=== PATIENT | female | born 1990 | race Hispanic/Latino ===

== ENCOUNTER 2020-02-23 13:16 | Emergency (ER) | payer SELFPAY ==
--- NOTE | 2020-02-23 13:52 | RAD ---
EXAM: 3 views of the right ankle HISTORY: Ankle pain COMPARISON: None FINDINGS: 3 views of the right ankle shows a spiral fracture of the distal fibula and a fracture of t he medial malleolus. There is malalignment of the ankle mortise. Moderate diffuse soft tissue swelling is seen. IMPRESSION: Bimalleolar fracture
[2020-02-23] MEDS ORDERED: Morphine 10 MG/ML VIAL ONE (15:54)
[2020-02-23] MEDS ORDERED: Ondansetron PF 4 MG/2 ML Vial ONE (15:54)
[2020-02-23] MEDS ORDERED: Morphine 4 MG/ML VIAL ONE (15:58)
[2020-02-23] MEDS ORDERED: Ondansetron ODT 4 MG TAB ONE (16:02)
== END 2020-02-23 17:05 | disposition home or self-care (01) ==
LOC: ERS 13:16
DX: S82.841A Displaced bimalleolar fracture of right lower leg, initial encounter for closed fracture (principal); F41.9 Anxiety disorder, unspecified; F32.9 Major depressive disorder, single episode, unspecified; Z87.891 Personal history of nicotine dependence; W10.9XXA Fall (on) (from) unspecified stairs and steps, initial encounter; Y92.039 Unspecified place in apartment as the place of occurrence of the external cause
CPT/HCPCS: 27810; 96372; J2270; J2405; Q0162

== ENCOUNTER 2020-03-01 09:33 | Outpatient (CLI) | payer OTHER ==
[2020-03-02 13:28] LABS: SARS-CoV-2 MS2 Positive; SARS-CoV-2 N Gene Positive; SARS-CoV-2 S Gene Positive; SARS-CoV-2 by NAA DETECTED (NotDetected); SARS-CoV-2 orf1ab Positive
== END 2020-03-01 09:34 | disposition home or self-care (01) ==
LOC: LABBT 09:33
PROVIDERS: ATTEND Orthopaedic Surgery
DX: U07.1 COVID-19 (principal); Z01.812 Encounter for preprocedural laboratory examination; S82.841A Displaced bimalleolar fracture of right lower leg, initial encounter for closed fracture
CPT/HCPCS: 87635; U0003

== ENCOUNTER 2020-05-17 07:07 | Inpatient (IN) | payer OTHER ==
[2020-05-17] MEDS ORDERED: Morphine 4 MG/ML VIAL ONE (07:30)
[2020-05-17] MEDS ORDERED: Vancomycin 1 GM/200 ML BAG ONE (07:31)
[2020-05-17] MEDS ORDERED: Acetaminophen 500 MG TAB ONE (07:31)
[2020-05-17] MEDS ORDERED: Piperacillin/Tazobactam 4.5 GM VIAL ONE (07:31)
[2020-05-17] MEDS ORDERED: Ondansetron PF 4 MG/2 ML Vial ONE (07:31)
[2020-05-17 07:44] LABS: Hemoglobin 15.7 g/dL (12.0-16.0); Mean Corpuscular HGB CONC 33.6 g/dL (32.0-36.0); Mean Corpuscular Volume 92.3 fL (78.0-98.0); Mean Platelet Volume 9.4 fL (7.4-10.4); Platelet Count 188 thou/uL (130-400); RBC Distribution Width 11.1 % (11.5-14.5); Red Blood Cell (RBC) Count 5.07 mill/uL (4.20-5.40)
--- NOTE | 2020-05-17 07:49 | RAD ---
Exam:Right ankle 3 view HISTORY: Nausea. Vomiting. Drainage from wound. COMPARISON: 03/04/2020 FINDINGS: Redemonstration of internal fixation hardware. There appears be incompletely healed distal fibula fracture. There is soft tissue swelling. There appears to be a bandage overlying the lateral soft tissues. No evidence of subcutaneous emphysema. There does appear to be mild bone demineralizati on. IMPRESSION: No radiographic evidence of osteomyelitis. No evidence of perihardware lucency. Incomplet mike healed distal fibular fracture is noted.
[2020-05-17 07:55] LABS: BHCG - Serum Negative (NEGATIVE); Pregs Control Background? CLEAR/WHITE (CLR/WHITE); Pregs Control Bar Appear? YES (CONTROL BAR)
[2020-05-17 08:03] LABS: Band 17 % (5-11); Lymphocytes 3 % (21-51); MDiff Complete? YES; Monocytes 4 % (0-10); Neutrophil 75 % (42-75); Platelet Morphology Comment Appears Adequate; RBC Morphology Normal; Reactive Lymphocytes 1 % (0-10)
[2020-05-17 08:10] LABS: ALT (SGPT) 26 U/L (8-55); AST (SGOT) 18 U/L (5-34); Alkaline Phosphatase 77 U/L (40-110); Anion Gap 14 mmol/L (10-20); BUN (Urea Nitrogen) 12 mg/dL (7.0-18.7); Bilirubin, Total 0.9 mg/dL (0.2-1.2); Calc. Creatinine Clearance 0 mL/min (70-130); Carbon Dioxide 23 mmol/L (22-29); Chloride 100 mmol/L (98-107); Estimated GFR-MDRD 72; Globulin 3.6 g/dL (2.4-3.5); Glucose 151 mg/dL (70-105); Potassium 3.9 mmol/L (3.5-5.1); Protein, Total 7.6 g/dL (6.0-8.3); Sodium 133 mmol/L (136-145)
--- NOTE | 2020-05-17 10:20 | PDOC.HHP ---
Hospitalist HPI - History of Present Illness R ankle pain and redness History of Present Illness: 30 year old female pt presented to ER with a complaint of R ankle pain and redness that began this morning. Pt underwent a R ankle ORIF in 03/04/20, performed by Dr. Smith, after falling down stairs and suffering a R bimalleolar fracture. Pt reports that the recovery from surgery was going well and she was able to place pressure on R foot to walk with crutches. She does note intermittent opening of wounds around the surgical sites, with some dark drainage. Pt was using soap and water to clean the wounds, and replacing the bandages. This morning, she states that she felt feverish, dizzy, redness that extends from R ankle to her knee, 1 episode of vomiting, and ankle pain. She states that the pain is worsened by movement and that she can no longer place pressure to walk. Denies recent trauma. She did not take any medications today and she has finished her prescription of Tylenol 3 and Tramadol that was given after her surgery. She also reports mild headache that is worsened by light. She denies chest pain, abdominal pain, SOB, nausea, dysuria, blood in stool or urine. Hospitalist ROS - Review of Systems All other systems reviewed; all pertinent +/- noted in HPI/Subj Hospitalist History - Past Medical History Source: patient Psych: reports: Anxiety, Depression - Past Surgical History Past Surgical History: reports: , Tubal Ligation, Tonsillectomy, Other (Adenoidectomy) - Family History Family History: reports: cardiac disorder, diabetes mellitus - Social History Smoking Status: Former smoker Alcohol: reports: None Drugs: reports: none Living Situation: With Family - Exam General Appearance: awake alert (in mild distress. Obese patient) Eye: PERRL ENT: normocephalic atraumatic Neck: supple, symmetric, no JVD Heart: RRR, no murmur, no gallops Respiratory: CTAB, no wheezes, no rales, no ronchi Gastrointestinal: soft, non-tender, non-distended, normal bowel sounds, no guarding, no rigidity Extremities: 1+ LE edema (R ankle. R ankle shows redness that extends from ankle to back of knee, feels warm to touch. Compared to L side, R calf seems more swollen.There is a 1cm open wound on lateral R ankle.) Neurological: cranial nerve grossly intact, normal sensation to touch, no weakness Musculoskeletal: normal tone, normal strength Musculoskeletal - other findings: Normal ROM of R ankle Psychiatric: normal affect, A&O x 3 Hospitalist Results - Labs Result Diagrams: 05/17/20 07:24 05/17/20 07:24 Lab results: WBC 16.0 thou/uL (4.8-10.8) H 05/17/20 07:24 Hgb 15.7 g/dL (12.0-16.0) 05/17/20 07:24 Hct 46.8 % (36.0-47.0) 05/17/20 07:24 MCV 92.3 fL (78.0-98.0) 05/17/20 07:24 Plt Count 188 thou/uL (130-400) 05/17/20 07:24 Band Neuts % (Manual) 17 % (5-11) H 05/17/20 07:24 Sodium 133 mmol/L (136-145) L 05/17/20 07:24 Potassium 3.9 mmol/L (3.5-5.1) 05/17/20 07:24 Chloride 100 mmol/L (98-107) 05/17/20 07:24 Carbon Dioxide 23 mmol/L (22-29) 05/17/20 07:24 BUN 12 mg/dL (7.0-18.7) 05/17/20 07:24 Creatinine 0.91 mg/dL (0.6-1.1) 05/17/20 07:24 Glucose 151 mg/dL (70-105) H 05/17/20 07:24 Lactic Acid 3.0 mmol/L (0.5-2.2) H 05/17/20 07:24 Calcium 9.0 mg/dL (7.8-10.44) 05/17/20 07:24 Total Bilirubin 0.9 mg/dL (0.2-1.2) 05/17/20 07:24 AST 18 U/L (5-34) 05/17/20 07:24 ALT 26 U/L (8-55) 05/17/20 07:24 Alkaline Phosphatase 77 U/L (40-110) 05/17/20 07:24 Serum Total Protein 7.6 g/dL (6.0-8.3) 05/17/20 07:24 Albumin 4.0 g/dL (3.5-5.0) 05/17/20 07:24 Hospitalist H&P A/P - Problem (1) Sepsis Code(s): A41.9 - SEPSIS, UNSPECIFIED ORGANISM Status: Acute (2) Cellulitis of right ankle Code(s): L03.115 - CELLULITIS OF RIGHT LOWER LIMB Status: Acute - Plan Plan: -Rule out DVT using vascular US -Continue Zosyn -Perform a wound culture and modify to appropriate antibiotic therapy -Manage pain control using Tylenol
[2020-05-17 10:43] LABS: Lactic Acid 1.9 mmol/L (0.5-2.2)
--- NOTE | 2020-05-17 11:01 | ULT ---
EXAM: Right lower extremity venous ultrasound HISTORY: Right lower extremity pain and redness COMPARISON: None TECHNIQUE: Multiplanar grayscale and color Doppler images were obtained in a right lower extremity ve nous ultrasound. Spectral analysis of the Doppler waveforms were performed. FINDINGS: The common femoral vein, profunda femoral vein, superficial femoral vein, and popliteal vei n are normal in appearance without visible thrombus. These vessels demonstrate normal compression, flow, and augmentation. The posterior tibial vein and greater saphenous vein are patent without evidence of thrombus. IMPRESSION: No evidence of DVT.
[2020-05-17] MEDS ORDERED: Acetaminophen 325 MG TAB PO PRN (11:51)
[2020-05-17] MEDS ORDERED: Ondansetron ODT 4 MG TAB PO PRN (11:51)
[2020-05-17] MEDS ORDERED: Calcium Carbonate 500 MG ChewTAB PO PRN (11:51)
[2020-05-17] MEDS ORDERED: Meropenem 1 GM in Sodium Chloride 0.9% 100 ML IVPB SCH (12:00)
[2020-05-17] MEDS ORDERED: Vancomycin 1 GM in Premix Bag 1 BAG IVPB SCH (12:00)
[2020-05-17] MEDS ORDERED: diphenhydrAMINE 25 MG CAP PO PRN (13:08)
[2020-05-17] MEDS: Sodium Chloride 0.9% 1,000 ML IV SCH (13:16)
[2020-05-17] MEDS: MEROPENEM 1 GM/50 ML 1 GM in Premix Bag 1 BAG IVPB SCH ×2 (15:53→23:00)
[2020-05-17 16:36] VITALS: BMI 59.2
--- NOTE | 2020-05-17 16:54 | CON ---
DATE OF CONSULTATION: REQUESTING PHYSICIAN: Dr. Kunal Woodward. CONSULTING PHYSICIAN: Dr. Kevin Fischer. REASON FOR CONSULTATION: Acute swelling and erythema of the right ankle. BRIEF CLINICAL HISTORY: Carmen is a 30-year-old female, who presented to the emergency room this morning for evaluation of right ankle pain and swelling that began abruptly this morning. Our service has been consulted because she has had an open reduction and internal fixation of the right ankle on March 04, 2020. Surgery and her postoperative recovery had been reported as being unremarkable, and she was doing very well with her recovery. She has been complaining of acute onset discomfort and she also admits to little bit of intermittent drainage at the operative site. She has had one episode of vomiting, constitutional symptoms, malaise, and she states that she can no longer put pressure on the ankle anymore. PAST MEDICAL HISTORY: Significant for depression. PAST SURGICAL HISTORY: , tubal ligation, tonsillectomy, left ankle ORIF in February of this year. PHYSICAL EXAMINATION: Visual inspection of the right ankle demonstrates her to have significant erythema circumferentially both on the medial and lateral aspect of the ankle, extending down to the dorsum of the foot and both retromalleolar regions. The erythema extends approximately half to [address] her leg, especially posteriorly, it blanches with pressure. She has a little bit of bimalleolar tenderness to palpation, but I am not able to express anything out of her incision on either side. There is no purulence expressed, no active draining, but she does have a macerated area at the superior aspect of her lateral incision, and again, I cannot express anything out of this with deep direct pressure, which is a little uncomfortable for the patient. She had good digital excursion. She has adequate range of motion with plantar flexion, dorsiflexion, inversion, eversion. Range of motion is full and non-provocative. IMAGING STUDIES: Two views of right ankle demonstrate a standard bimalleolar ORIF with 1/3 tubular plate fibula and 2 medial malleolar screws. LABORATORY DATA: White blood cell count 16, hemoglobin 15.7, hematocrit 46.8. IMPRESSION: Right ankle cellulitis. At this point, I am not sure whether or not this is a septic joint or infected hardware, but I do agree with admission and IV antibiotics. Tentatively, I will make the patient n.p.o. after midnight, so we can re-examine in the morning. Job ID: [id number]
[2020-05-17 17:30] LABS: SARS-CoV-2 MS2 Positive; SARS-CoV-2 N Gene Negative; SARS-CoV-2 S Gene Negative; SARS-CoV-2 by NAA Not Detected (NotDetected); SARS-CoV-2 orf1ab Negative
[2020-05-17] MEDS: HYDROcodone/Acetaminophen 5/325 mg Tablet PO PRN (18:39)
[2020-05-17] MEDS ORDERED: Vancomycin 1.5 GRAM/300 ML BAG 1.5 GM in Premix Bag 1 BAG IVPB SCH (20:00)
[2020-05-17] MEDS: Enoxaparin Sodium 40 MG/0.4 ML SYRINGE SC SCH (20:47)
[2020-05-17] MEDS: Senokot S 8.6-50 MG TAB PO SCH (20:48)
[2020-05-17] MEDS: Saccharomyces boulardii 250 MG CAP PO SCH (20:48)
[2020-05-17] MEDS: Famotidine 20 MG TAB PO SCH (20:48)
[2020-05-18] MEDS: HYDROcodone/Acetaminophen 5/325 mg Tablet PO PRN ×2 (00:15→08:46)
[2020-05-18] MEDS: Sodium Chloride 0.9% 1,000 ML IV SCH ×3 (01:30→15:07)
[2020-05-18 05:48] LABS: #Eosinphils 0.1 thou/uL (0.0-0.7); #Lymphocytes 1.4 thou/uL (1.20-3.40); #Neutrophils 12.7 thou/uL (1.40-6.50); %Basophils 0.2 % (0.0-1.0); %Eosinophils 0.5 % (0.0-10.0); %Monocytes 6.6 % (0.0-10.0); %Neutrophils 83.8 % (42.0-75.0); Hemoglobin 13.2 g/dL (12.0-16.0); Mean Corpuscular HGB CONC 33.9 g/dL (32.0-36.0); Mean Corpuscular Hemoglobin 31.3 pg (27.0-31.0); Mean Corpuscular Volume 92.1 fL (78.0-98.0); Mean Platelet Volume 9.2 fL (7.4-10.4); Platelet Count 154 thou/uL (130-400); RBC Distribution Width 11.4 % (11.5-14.5); Red Blood Cell (RBC) Count 4.21 mill/uL (4.20-5.40); White Blood Cell (WBC) Count 15.2 thou/uL (4.8-10.8)
[2020-05-18] MEDS: MEROPENEM 1 GM/50 ML 1 GM in Premix Bag 1 BAG IVPB SCH (05:48)
[2020-05-18 06:05] LABS: ALT (SGPT) 16 U/L (8-55); AST (SGOT) 17 U/L (5-34); Alkaline Phosphatase 65 U/L (40-110); Anion Gap 10 mmol/L (10-20); BUN (Urea Nitrogen) 10 mg/dL (7.0-18.7); Bilirubin, Total 0.8 mg/dL (0.2-1.2); Calc. Creatinine Clearance 217 mL/min (70-130); Calcium 7.9 mg/dL (7.8-10.44); Carbon Dioxide 20 mmol/L (22-29); Chloride 105 mmol/L (98-107); Estimated GFR-MDRD 85; Glucose 102 mg/dL (70-105); Potassium 3.8 mmol/L (3.5-5.1); Sodium 131 mmol/L (136-145)
--- NOTE | 2020-05-18 08:05 | PRG ---
DATE OF SERVICE: 05/18/2020 SUBJECTIVE: Carmen is a 30-year-old female admitted yesterday for cellulitis of the right lower extremity. She was started on vancomycin and meropenem by the Medicine Team. Our service was consulted for evaluation of the orthopedic hardware as a possible source. She certainly has some compromised skin, but there has been no purulence expressed from the wound and she can actively move the ankle, although ambulation is uncomfortable for her. Radiographs failed to demonstrate any gas or fluid levels in and around or changes consistent with osteomyelitis. She does have a white blood cell count which is elevated and remained constant at about 15.2. Her sedimentation rate was 29 and C-reactive protein at 18.2. Cellulitis is continuing to increase and move proximally. It has moved past the demarcation, which I personally made yesterday and is tender but does stephanie. Incisions appear without gross purulence, but this has more of a clinical appearance of a streptococcal infection rather than staphylococcus. IMPRESSION: Strongly suspect strep cellulitis due to failure to respond adequately to vancomycin and meropenem. PLAN: I will go ahead and discontinue the vancomycin, meropenem, and initiate IV clindamycin 900 q.8 for more directed streptococcal treatment plan. We will be happy to discuss with the Medicine team. We will follow clinically as well. At this point, we will place her on an 1800 kilocalorie diet and allow her to eat. No surgical plans at this point. Job ID: [id number]
[2020-05-18] MEDS ORDERED: Zolpidem Tartrate 5 MG TAB PO PRN (08:34)
[2020-05-18] MEDS ORDERED: Diabetic Tussin 200 MG/10 ML UDCUP PO PRN (08:34)
[2020-05-18] MEDS ORDERED: Sodium Chloride 0.65% Nasal 44 ML BOT EA NARE PRN (08:34)
[2020-05-18] MEDS ORDERED: Cepastat Lozenges 1 LOZ PO PRN (08:34)
[2020-05-18] MEDS ORDERED: Loperamide HCl 2 MG CAP PO PRN (08:34)
[2020-05-18] MEDS ORDERED: Loratadine 10 MG TAB PO PRN (08:34)
[2020-05-18] MEDS ORDERED: hydrALAZINE 20 MG/ML VIAL SLOW IVP PRN (08:34)
[2020-05-18] MEDS: Famotidine 20 MG TAB PO SCH ×2 (08:44→21:14)
[2020-05-18] MEDS: Clindamycin/D5W 900 MG in Premix Bag 1 BAG IVPB SCH ×3 (08:45→22:43)
[2020-05-18] MEDS: Senokot S 8.6-50 MG TAB PO SCH ×3 (08:59→21:18)
[2020-05-18] MEDS ORDERED: Morphine 2 MG/ML VIAL SLOW IVP SCH (09:00)
[2020-05-18] MEDS ORDERED: FLU VACC QS2020-21(6MOS UP)/PF 60 MCG/0.5 ML SYRINGE IM ONE (09:00)
[2020-05-18] MEDS ORDERED: Morphine 2 MG/ML VIAL SLOW IVP PRN (09:15)
--- NOTE | 2020-05-18 09:38 | PDOC.HOSPP ---
- Subjective Encounter Date: 05/18/20 Encounter Time: 08:30 Subjective: Patient is complaining of pain in her right ankle, per patient she is not diabetic, her erythema has been increased - Objective Vital Signs & Weight: Vital Signs (12 hours) Temp Pulse Resp BP Pulse Ox 05/18/20 08:01 98.5 F 05/18/20 08:00 98 05/18/20 07:26 99.5 F 95 16 123/86 98 05/18/20 04:47 98.2 F 92 18 127/79 97 05/18/20 00:35 100.4 F H 110 H 20 115/73 99 Weight Weight 293 lb 3.789 oz Result Diagrams: 05/18/20 05:12 05/18/20 05:12 Radiology Reviewed by me: Yes Hospitalist ROS - Review of Systems Constitutional: denies: fever, chills, sweats, weakness, malaise, other ENT: denies: ear pain, ear discharge, nose pain, nose discharge, nose congestion, mouth pain, mouth swelling, throat pain, throat swelling, other Respiratory: denies: cough, dry, shortness of breath, hemoptysis, SOB with excer tion, pleuritic pain, sputum, wheezing, other Cardiovascular: denies: chest pain, palpitations, orthopnea, paroxysmal noc. dyspnea, edema, light headedness, other Gastrointestinal: denies: nausea, vomiting, abdominal pain, diarrhea, constipation, melena, hematochezia, other Genitourinary: denies: dysuria, frequency, incontinence, hematuria, retention, other Musculoskeletal: reports: leg pain. denies: neck pain, shoulder pain, arm pain, back pain, hand pain, foot pain, other - Medication Medications: Active Medications Generic Name Dose Route Start Last Admin Trade Name Freq PRN Reason Stop Dose Admin Acetaminophen 650 mg 05/17/20 11:51 05/17/20 13:16 Acetaminophen 325 Mg Tab PO 650 mg Q4H PRN Administration Headache/Fever/Mild Pain (1-3) Hydrocodone Bitart/Acetaminophen 1 tab 05/17/20 11:51 05/18/20 08:46 Hydrocodone/Acetaminophen 5/325 Mg Tablet PO 05/18/20 11:52 1 tab Q4H PRN Administration Moderate Pain (4-6) Diphenhydramine HCl 25 mg 05/17/20 13:08 05/17/20 13:16 Diphenhydramine 25 Mg Cap PO 25 mg Q6H PRN Administration Itching & Insomnia Enoxaparin Sodium 40 mg 05/17/20 21:00 05/17/20 20:47 Enoxaparin Sodium 40 Mg/0.4 Ml Syringe SC 40 mg 2100 KIM Administration Famotidine 20 mg 05/17/20 21:00 05/18/20 08:44 Famotidine 20 Mg Tab PO 20 mg BID KIM Administration Sodium Chloride 1,000 mls @ 75 mls/hr 05/17/20 12:00 05/18/20 04:31 Normal Saline 0.9% IV 1,000 mls .[id number] KIM Administration Clindamycin Phosphate/Dextrose 50 mls @ 100 mls/hr 05/18/20 08:00 05/18/20 08:45 900 mg/ Device IVPB 50 mls 0800,1600,2359 KIM Administration Saccharomyces Boulardii 250 mg 05/17/20 21:00 05/17/20 20:48 Saccharomyces Boulardii 250 Mg Cap PO 250 mg HS KIM Administration Senna/Docusate Sodium 2 tab 05/17/20 21:00 05/18/20 08:59 Senokot S 8.6-50 Mg Tab PO 2 tab BID KIM Administration - Exam General Appearance: NAD, awake alert Eye: PERRL, anicteric sclera ENT: normocephalic atraumatic, no oropharyngeal lesions Neck: supple, symmetric, no JVD, no thyromegaly Heart: RRR, no murmur, no gallops, no rubs Respiratory: CTAB, no wheezes, no rales, no ronchi Gastrointestinal: soft, non-tender, non-distended, normal bowel sounds Gastrointestinal - other findings: Morbid obesity Extremities - other findings: Right lower extremity erythema with wound noted Skin: normal turgor, no lesions Neurological: no focal deficits Musculoskeletal: normal tone, normal strength Psychiatric: normal affect, normal behavior, A&O x 3 Hosp A/P (1) Sepsis Code(s): A41.9 - SEPSIS, UNSPECIFIED ORGANISM Status: Acute Qualifiers: Sepsis acute organ dysfunction status: without acute organ dysfunction (2) Cellulitis of right ankle Code(s): L03.115 - CELLULITIS OF RIGHT LOWER LIMB Status: Acute (3) Lactic acidosis Code(s): E87.2 - ACIDOSIS Status: Acute Plan: Due to sepsis, resolved (4) Hyponatremia Code(s): E87.1 - HYPO-OSMOLALITY AND HYPONATREMIA Status: Acute (5) Morbid obesity with BMI of 50.0-59.9, adult Code(s): E66.01 - MORBID (SEVERE) OBESITY DUE TO EXCESS CALORIES; Z68.43 - BODY MASS INDEX [BMI] 50.0-59.9, ADULT Status: Chronic - Plan old records reviewed/req, continue antibiotics Plan Orthopedic recommendation appreciated, no plan for surgical intervention, Continue clindamycin Continue Florastor as a probiotic We will add morphine for pain control Continue IV fluid We will repeat labs tomorrow Ambulate as tolerated Follow-up on culture result
[2020-05-18] MEDS: Ondansetron PF 4 MG/2 ML Vial IVP PRN ×2 (11:07→18:07)
[2020-05-18] MEDS: Enoxaparin Sodium 40 MG/0.4 ML SYRINGE SC SCH (21:13)
[2020-05-18] MEDS: Saccharomyces boulardii 250 MG CAP PO SCH (21:13)
[2020-05-18] MEDS: traMADol HCl 50 MG TAB PO PRN (22:39)
[2020-05-19 06:15] LABS: #Eosinphils 0.1 thou/uL (0.0-0.7); #Lymphocytes 1.6 thou/uL (1.20-3.40); #Monocytes 0.8 thou/uL (0.11-0.59); #Neutrophils 5.7 thou/uL (1.40-6.50); %Basophils 0.3 % (0.0-1.0); %Eosinophils 1.2 % (0.0-10.0); %Lymphocytes 19.6 % (21.0-51.0); %Monocytes 10.1 % (0.0-10.0); %Neutrophils 68.8 % (42.0-75.0); Hemoglobin 11.9 g/dL (12.0-16.0); Mean Corpuscular HGB CONC 32.9 g/dL (32.0-36.0); Mean Corpuscular Hemoglobin 30.5 pg (27.0-31.0); Mean Corpuscular Volume 92.6 fL (78.0-98.0); Mean Platelet Volume 9.5 fL (7.4-10.4); Platelet Count 164 thou/uL (130-400); RBC Distribution Width 11.1 % (11.5-14.5); White Blood Cell (WBC) Count 8.2 thou/uL (4.8-10.8)
[2020-05-19 06:33] LABS: Anion Gap 13 mmol/L (10-20); BUN (Urea Nitrogen) 9 mg/dL (7.0-18.7); Calc. Creatinine Clearance 245 mL/min (70-130); Calcium 8.1 mg/dL (7.8-10.44); Carbon Dioxide 22 mmol/L (22-29); Chloride 105 mmol/L (98-107); Estimated GFR-MDRD Greater than 90; Glucose 104 mg/dL (70-105); Potassium 3.7 mmol/L (3.5-5.1); Sodium 136 mmol/L (136-145)
[2020-05-19 06:36] LABS: Hemoglobin A1c 5.5 % (4.0-6.0)
[2020-05-19] MEDS: Sodium Chloride 0.9% 1,000 ML IV SCH (06:36)
[2020-05-19] MEDS: Senokot S 8.6-50 MG TAB PO SCH ×2 (08:32→21:49)
[2020-05-19] MEDS: Clindamycin/D5W 900 MG in Premix Bag 1 BAG IVPB SCH ×2 (08:32→16:19)
[2020-05-19] MEDS: Famotidine 20 MG TAB PO SCH ×2 (08:33→21:48)
--- NOTE | 2020-05-19 09:32 | PDOC.HOSPP ---
- Subjective Encounter Date: 05/19/20 Encounter Time: 08:30 Subjective: Patient seen and examined. No new complaints. No overnight events, patient is overall feeling better - Objective Vital Signs & Weight: Vital Signs (12 hours) Temp Pulse Resp BP Pulse Ox 05/19/20 07:06 98.3 F 80 15 120/87 98 05/19/20 00:00 98.9 F 96 18 93/57 L 95 Weight Admit Weight 293 lb 3.792 oz Weight 293 lb 3.789 oz I&O: 05/18/20 05/19/20 05/20/20 06:59 06:59 06:59 Intake Total 1720 Balance 1720 Result Diagrams: 05/19/20 05:44 05/19/20 05:44 Hospitalist ROS - Review of Systems ENT: denies: ear pain, ear discharge, nose pain, nose discharge, nose congestion, mouth pain, mouth swelling, throat pain, throat swelling, other Respiratory: denies: cough, dry, shortness of breath, hemoptysis, SOB with excertion, pleuritic pain, sputum, wheezing, other Cardiovascular: denies: chest pain, palpitations, orthopnea, paroxysmal noc. dyspnea, edema, light headedness, other Gastrointestinal: denies: nausea, vomiting, abdominal pain, diarrhea, constipation, melena, hematochezia, other Genitourinary: denies: dysuria, frequency, incontinence, hematuria, retention, other Musculoskeletal: denies: neck pain, shoulder pain, arm pain, back pain, hand pain, leg pain, foot pain, other - Medication Medications: Active Medications Generic Name Dose Route Start Last Admin Trade Name Freq PRN Reason Stop Dose Admin Acetaminophen 650 mg 05/17/20 11:51 05/17/20 13:16 Acetaminophen 325 Mg Tab PO 650 mg Q4H PRN Administration Headache/Fever/Mild Pain (1-3) Diphenhydramine HCl 25 mg 05/17/20 13:08 05/17/20 13:16 Diphenhydramine 25 Mg Cap PO 25 mg Q6H PRN Administration Itching & Insomnia Enoxaparin Sodium 40 mg 05/17/20 21:00 05/18/20 21:13 Enoxaparin Sodium 40 Mg/0.4 Ml Syringe SC 40 mg 2100 KIM Administration Famotidine 20 mg 05/17/20 21:00 05/19/20 08:33 Famotidine 20 Mg Tab PO 20 mg BID KIM Administration Clindamycin Phosphate/Dextrose 50 mls @ 100 mls/hr 05/18/20 08:00 05/19/20 08:32 900 mg/ Device IVPB 50 mls 0800,1600,2359 KIM Administration Morphine Sulfate 2 mg 05/18/20 09:15 05/18/20 15:07 Morphine 2 Mg/Ml Vial SLOW IVP 2 mg Q4H PRN Administration Mild-Moderate Pain (1-5) Ondansetron HCl 4 mg 05/17/20 11:51 05/18/20 18:07 Ondansetron Pf 4 Mg/2 Ml Vial IVP 4 mg Q6H PRN Administration Nausea/Vomiting Ondansetron HCl 4 mg 05/17/20 11:51 05/18/20 22:38 Ondansetron Odt 4 Mg Tab PO 4 mg Q6H PRN Administration Nausea/Vomiting Saccharomyces Boulardii 250 mg 05/17/20 21:00 05/18/20 21:13 Saccharomyces Boulardii 250 Mg Cap PO 250 mg HS KIM Administration Senna/Docusate Sodium 2 tab 05/17/20 21:00 05/19/20 08:32 Senokot S 8.6-50 Mg Tab PO Not Given BID [facility] Tramadol HCl 50 mg 05/17/20 11:50 05/18/20 22:39 Tramadol Hcl 50 Mg Tab PO 50 mg Q4H PRN Administration Moderate Pain (4-6) - Exam General Appearance: NAD, awake alert Eye: PERRL, anicteric sclera ENT: normocephalic atraumatic, no oropharyngeal lesions Neck: supple, symmetric, no JVD, no thyromegaly Heart: RRR, no murmur, no gallops, no rubs, normal peripheral pulses Respiratory: CTAB, no wheezes, no rales, no ronchi, normal chest expansion Gastrointestinal: soft, non-tender, non-distended, normal bowel sounds, no palpable masses Extremities: no cyanosis, no clubbing Extremities - other findings: Right lower extremity cellulitis improving Skin: normal turgor, no lesions Neurological: no focal deficits Musculoskeletal: normal tone, normal strength Psychiatric: normal affect, normal behavior, A&O x 3 Hosp A/P (1) Sepsis Code(s): A41.9 - SEPSIS, UNSPECIFIED ORGANISM Status: Acute Qualifiers: Sepsis acute organ dysfunction status: without acute organ dysfunction (2) Cellulitis of right ankle Code(s): L03.115 - CELLULITIS OF RIGHT LOWER LIMB Status: Acute (3) Lactic acidosis Code(s): E87.2 - ACIDOSIS Status: Acute (4) Hyponatremia Code(s): E87.1 - HYPO-OSMOLALITY AND HYPONATREMIA Status: Acute (5) Morbid obesity with BMI of 50.0-59.9, adult Code(s): E66.01 - MORBID (SEVERE) OBESITY DUE TO EXCESS CALORIES; Z68.43 - BODY MASS INDEX [BMI] 50.0-59.9, ADULT Status: Chronic - Plan old records reviewed/req, continue antibiotics Plan Discontinue IV fluid Continue IV clindamycin 1 more day Pain control Keep lower extremity elevated Expecting discharge in next 24 hours.
[2020-05-19] MEDS: traMADol HCl 50 MG TAB PO PRN ×2 (16:23→21:47)
[2020-05-19] MEDS: Saccharomyces boulardii 250 MG CAP PO SCH (21:48)
[2020-05-19] MEDS: Enoxaparin Sodium 40 MG/0.4 ML SYRINGE SC SCH (21:48)
[2020-05-20] MEDS: Clindamycin/D5W 900 MG in Premix Bag 1 BAG IVPB SCH ×3 (01:45→17:28)
[2020-05-20] MEDS: Senokot S 8.6-50 MG TAB PO SCH ×2 (08:23→21:01)
[2020-05-20] MEDS: Famotidine 20 MG TAB PO SCH ×2 (08:23→21:01)
[2020-05-20] MEDS ORDERED: Clindamycin/D5W 900 mg/50 ml Premix Bag ONE (08:25)
[2020-05-20] MEDS: Ondansetron PF 4 MG/2 ML Vial IVP PRN (08:29)
--- NOTE | 2020-05-20 13:11 | PDOC.HOSPP ---
- Subjective Encounter Date: 05/20/20 Encounter Time: 10:55 Subjective: Patient seen and examined. No new complaints. No overnight events - Objective Vital Signs & Weight: Vital Signs (12 hours) Temp Pulse Resp BP Pulse Ox 05/20/20 08:30 100 05/20/20 07:05 98.5 F 66 18 141/80 H 100 Weight Admit Weight 293 lb 3.792 oz Weight 293 lb 3.789 oz I&O: 05/19/20 05/20/20 05/21/20 06:59 06:59 06:59 Intake Total 1720 1500 Balance 1720 1500 Result Diagrams: 05/19/20 05:44 05/19/20 05:44 Hospitalist ROS - Review of Systems ENT: denies: ear pain, ear discharge, nose pain, nose discharge, nose congestion, mouth pain, mouth swelling, throat pain, throat swelling, other Respiratory: denies: cough, dry, shortness of breath, hemoptysis, SOB with excertion, pleuritic pain, sputum, wheezing, other Cardiovascular: denies: chest pain, palpitations, orthopnea, paroxysmal noc. dyspnea, edema, light headedness, other Gastrointestinal: denies: nausea, vomiting, abdominal pain, diarrhea, constipation, melena, hematochezia, other Genitourinary: denies: dysuria, frequency, incontinence, hematuria, retention, other Musculoskeletal: denies: neck pain, shoulder pain, arm pain, back pain, hand pain, leg pain, foot pain, other - Medication Medications: Active Medications Generic Name Dose Route Start Last Admin Trade Name Freq PRN Reason Stop Dose Admin Acetaminophen 650 mg 05/17/20 11:51 05/17/20 13:16 Acetaminophen 325 Mg Tab PO 650 mg Q4H PRN Administration Headache/Fever/Mild Pain (1-3) Diphenhydramine HCl 25 mg 05/17/20 13:08 05/17/20 13:16 Diphenhydramine 25 Mg Cap PO 25 mg Q6H PRN Administration Itching & Insomnia Enoxaparin Sodium 40 mg 05/17/20 21:00 05/19/20 21:48 Enoxaparin Sodium 40 Mg/0.4 Ml Syringe SC 40 mg 2100 KIM Administration Famotidine 20 mg 05/17/20 21:00 05/20/20 08:23 Famotidine 20 Mg Tab PO 20 mg BID KIM Administration Clindamycin Phosphate/Dextrose 50 mls @ 100 mls/hr 05/18/20 08:00 05/20/20 08:23 900 mg/ Device IVPB 50 mls 0800,1600,2359 KIM Administration Morphine Sulfate 2 mg 05/18/20 09:15 05/18/20 15:07 Morphine 2 Mg/Ml Vial SLOW IVP 2 mg Q4H PRN Administration Mild-Moderate Pain (1-5) Ondansetron HCl 4 mg 05/17/20 11:51 05/20/20 08:29 Ondansetron Pf 4 Mg/2 Ml Vial IVP 4 mg Q6H PRN Administration Nausea/Vomiting Ondansetron HCl 4 mg 05/17/20 11:51 05/18/20 22:38 Ondansetron Odt 4 Mg Tab PO 4 mg Q6H PRN Administration Nausea/Vomiting Saccharomyces Boulardii 250 mg 05/17/20 21:00 05/19/20 21:48 Saccharomyces Boulardii 250 Mg Cap PO 250 mg HS KIM Administration Senna/Docusate Sodium 2 tab 05/17/20 21:00 05/20/20 08:23 Senokot S 8.6-50 Mg Tab PO Not Given BID [facility] Tramadol HCl 50 mg 05/17/20 11:50 05/19/20 21:47 Tramadol Hcl 50 Mg Tab PO 50 mg Q4H PRN Administration Moderate Pain (4-6) - Exam General Appearance: NAD, awake alert Eye: PERRL, anicteric sclera ENT: normocephalic atraumatic, no oropharyngeal lesions Neck: supple, symmetric, no JVD, no thyromegaly Heart: RRR, no murmur, no gallops, no rubs Respiratory: CTAB, no wheezes, no rales, no ronchi Gastrointestinal: soft, non-tender, non-distended, normal bowel sounds Gastrointestinal - other findings: morbid obesity+ Extremities: no cyanosis, no clubbing Extremities - other findings: cellulitis right leg Skin: normal turgor, no lesions Neurological: no focal deficits Musculoskeletal: normal tone, normal strength Psychiatric: normal affect, normal behavior Hosp A/P (1) Sepsis Code(s): A41.9 - SEPSIS, UNSPECIFIED ORGANISM Status: Acute Qualifiers: Sepsis acute organ dysfunction status: without acute organ dysfunction (2) Cellulitis of right ankle Code(s): L03.115 - CELLULITIS OF RIGHT LOWER LIMB Status: Acute (3) Lactic acidosis Code(s): E87.2 - ACIDOSIS Status: Acute (4) Hyponatremia Code(s): E87.1 - HYPO-OSMOLALITY AND HYPONATREMIA Status: Acute (5) Morbid obesity with BMI of 50.0-59.9, adult Code(s): E66.01 - MORBID (SEVERE) OBESITY DUE TO EXCESS CALORIES; Z68.43 - BODY MASS INDEX [BMI] 50.0-59.9, ADULT Status: Chronic - Plan old records reviewed/req Plan Continue IV clindamycin Pain control Keep lower extremity elevated Not ready today for discharge
[2020-05-20] MEDS: Enoxaparin Sodium 40 MG/0.4 ML SYRINGE SC SCH (21:01)
[2020-05-20] MEDS: Saccharomyces boulardii 250 MG CAP PO SCH (21:01)
[2020-05-20] MEDS: traMADol HCl 50 MG TAB PO PRN (21:04)
[2020-05-21] MEDS: Clindamycin/D5W 900 MG in Premix Bag 1 BAG IVPB SCH ×2 (00:15→08:08)
[2020-05-21] MEDS: Famotidine 20 MG TAB PO SCH (08:09)
[2020-05-21] MEDS: Senokot S 8.6-50 MG TAB PO SCH (08:09)
--- NOTE | 2020-05-21 10:34 | PDOC.HOSPP ---
- Subjective Encounter Date: 05/21/20 Encounter Time: 08:30 Subjective: Patient seen and examined. No new complaints. No overnight events - Objective Vital Signs & Weight: Vital Signs (12 hours) Temp Pulse Resp BP Pulse Ox 05/21/20 08:00 98 05/21/20 07:42 98.5 F 82 18 128/89 98 Weight Admit Weight 293 lb 3.792 oz Weight 293 lb 3.789 oz I&O: 05/20/20 05/21/20 05/22/20 06:59 06:59 06:59 Intake Total 1500 1500 Balance 1500 1500 Result Diagrams: 05/19/20 05:44 05/19/20 05:44 Hospitalist ROS - Review of Systems ENT: denies: ear pain, ear discharge, nose pain, nose discharge, nose congestion, mouth pain, mouth swelling, throat pain, throat swelling, other Respiratory: denies: cough, dry, shortness of breath, hemoptysis, SOB with excertion, pleuritic pain, sputum, wheezing, other Cardiovascular: denies: chest pain, palpitations, orthopnea, paroxysmal noc. dyspnea, edema, light headedness, other Gastrointestinal: denies: nausea, vomiting, abdominal pain, diarrhea, constipation, melena, hematochezia, other Genitourinary: denies: dysuria, frequency, incontinence, hematuria, retention, other - Medication Medications: Active Medications Generic Name Dose Route Start Last Admin Trade Name Freq PRN Reason Stop Dose Admin Acetaminophen 650 mg 05/17/20 11:51 05/17/20 13:16 Acetaminophen 325 Mg Tab PO 650 mg Q4H PRN Administration Headache/Fever/Mild Pain (1-3) Diphenhydramine HCl 25 mg 05/17/20 13:08 05/17/20 13:16 Diphenhydramine 25 Mg Cap PO 25 mg Q6H PRN Administration Itching & Insomnia Enoxaparin Sodium 40 mg 05/17/20 21:00 05/20/20 21:01 Enoxaparin Sodium 40 Mg/0.4 Ml Syringe SC 40 mg 2100 KIM Administration Famotidine 20 mg 05/17/20 21:00 05/21/20 08:09 Famotidine 20 Mg Tab PO 20 mg BID KIM Administration Clindamycin Phosphate/Dextrose 50 mls @ 100 mls/hr 05/18/20 08:00 05/21/20 08:08 900 mg/ Device IVPB 50 mls 0800,1600,2359 KIM Administration Morphine Sulfate 2 mg 05/18/20 09:15 05/18/20 15:07 Morphine 2 Mg/Ml Vial SLOW IVP 2 mg Q4H PRN Administration Mild-Moderate Pain (1-5) Ondansetron HCl 4 mg 05/17/20 11:51 05/20/20 08:29 Ondansetron Pf 4 Mg/2 Ml Vial IVP 4 mg Q6H PRN Administration Nausea/Vomiting Ondansetron HCl 4 mg 05/17/20 11:51 05/18/20 22:38 Ondansetron Odt 4 Mg Tab PO 4 mg Q6H PRN Administration Nausea/Vomiting Saccharomyces Boulardii 250 mg 05/17/20 21:00 05/20/20 21:01 Saccharomyces Boulardii 250 Mg Cap PO 250 mg HS KIM Administration Senna/Docusate Sodium 2 tab 05/17/20 21:00 05/21/20 08:09 Senokot S 8.6-50 Mg Tab PO Not Given BID KIM Tramadol HCl 50 mg 05/17/20 11:50 05/20/20 21:04 Tramadol Hcl 50 Mg Tab PO 50 mg Q4H PRN Administration Moderate Pain (4-6) - Exam General Appearance: NAD, awake alert Eye: PERRL, anicteric sclera ENT: normocephalic atraumatic, no oropharyngeal lesions Neck: symmetric, no JVD, no thyromegaly Heart: RRR, no murmur, no gallops, no rubs Respiratory: CTAB, no wheezes, no rales, no ronchi Gastrointestinal: soft, non-tender, non-distended, normal bowel sounds Extremities: no clubbing, no edema Skin: normal turgor, no lesions Neurological: no focal deficits Musculoskeletal: normal tone, normal strength Psychiatric: normal affect, normal behavior, A&O x 3 Hosp A/P (1) Sepsis Code(s): A41.9 - SEPSIS, UNSPECIFIED ORGANISM Status: Acute Qualifiers: Sepsis acute organ dysfunction status: without acute organ dysfunction (2) Cellulitis of right ankle Code(s): L03.115 - CELLULITIS OF RIGHT LOWER LIMB Status: Acute (3) Lactic acidosis Code(s): E87.2 - ACIDOSIS Status: Acute (4) Hyponatremia Code(s): E87.1 - HYPO-OSMOLALITY AND HYPONATREMIA Status: Acute (5) Morbid obesity with BMI of 50.0-59.9, adult Code(s): E66.01 - MORBID (SEVERE) OBESITY DUE TO EXCESS CALORIES; Z68.43 - BODY MASS INDEX [BMI] 50.0-59.9, ADULT Status: Chronic - Plan old records reviewed/req Plan Cellulitis has been improved, changed to p.o. clindamycin for another 10 days, she will follow-up with her PCP, See my discharge summary
--- NOTE | 2020-05-21 11:28 | DIS ---
DATE OF ADMISSION: 05/17/2020 DATE OF DISCHARGE: 05/21/2020 PRIMARY CARE PHYSICIAN: Carolyn Ramirez MD. DISCHARGE DISPOSITION: Home. PRIMARY DISCHARGE DIAGNOSES: 1. Cellulitis of right lower extremity and right ankle. 2. Lactic acidosis due to sepsis. 3. Sepsis due to cellulitis, resolved. 4. Hyponatremia, resolved. SECONDARY DISCHARGE DIAGNOSIS: Morbid obesity with BMI of 59. DISCHARGE MEDICATIONS: 1. Clindamycin 300 mg p.o. q.6 hourly for 10 days. 2. Florastor 250 mg p.o. twice daily for 10 days. RADIOLOGICAL INVESTIGATION: Ankle x-ray, negative for any fracture or dislocation. There was a healed distal fibular fracture. No osteomyelitis. Ultrasound, negative for any DVT. SIGNIFICANT LABORATORY DATA: WBC 8.2, hemoglobin 11.9, and platelets 164. BMP normal. LFTs normal. CRP 18.20. COVID-19, negative. Blood culture negative. CONTRAINDICATION: None. CODE STATUS: Full code. INPATIENT FANS CLERK: Orthoptics were consulted while in hospital. TEST RESULTS PENDING ON DISCHARGE: None. ALLERGIES: NO KNOWN DRUG ALLERGIES. DISCHARGE PLAN: Post hospital, the patient will follow up with primary care physician in 1 week as well as orthopedic physician in 1 week. HOSPITAL COURSE: A 30-year-old female who was admitted by Dr. Woodward. Please see his H and P for further details. On admission, she was having swelling, erythema, and tenderness of right lower extremity. The patient had recently ankle injury and due to follow up with orthopedic physician. On admission, she was febrile, and she was meeting sepsis criteria. She was treated with Rocephin and vancomycin and subsequently, antibiotic was changed to clindamycin only. The patient had significant clinical improvement by the time of discharge. Orthopedic evaluated this patient and there was no surgical intervention that was required based on x-ray finding. She was given another 10 days of oral clindamycin, and she will follow up with primary care physician as well as orthopedic physician. Please see my progress note from today. Job ID: [id number]
[2020-05-21 11:32] VITALS: BP 126/90; TEMP 98.4
--- NOTE | 2020-05-24 07:45 | PQF ---
CLINICAL DOCUMENTATION CLARIFICATION FORM: Dear : Bassam Lawrence Date / Time: 05/24/2020 0745 Please exercise your independent, professional judgment in responding to the clarification form. Clinical indicators are provided on the bottom of this form for your review Please check appropriate box(es): [ ] Cellulitis due to Infected Hardware [ ] Cellulitis due to postoperative wound infection [ x ] Cellulitis not related to procedure [ ] Other diagnosis [ ] Unable to determine Physician Signature: Date/Time: For continuity of documentation, please document condition throughout progress notes and discharge summary. Thank You. To be completed by CDI/Coding staff for physician review: Present Clinical Indicators - Signs / Symptoms / Labs Results and Location in Medical Record [X] WBC 16.0, Plt count 188, Neutrophils 75, Band 17 Laboratory 05/17 [X] BP 104/63, Pulse 106, Resp 18, Temp 100.8 Vital signs 05/17 [X] Sepsis due to Right leg cellulitis H&P p1 05/17 Dr Woodward [X] Pt underwent a R ankle ORIF H&P p2 05/17 Dr Woodward [X] Right ankle cellultis, not sure if this is septic joint or infected hardware Consult Dr Mendieta 05/17 Present Risk Factors Results and Location in Medical Record [X] Sepsis H&P p1 05/17 Dr Woodward [X] Cellulitis right leg H&P p1 05/17 Dr Woodward [X] Lactic acidosis H&P p1 05/17 Dr Woodward [X] CKD II H&P p1 05/17 Dr Woodward [X] Morbid obesity H&P p1 05/17 Dr Woodward Present Treatments Results and Location in Medical Record [X] IV Zosyn 4.5 gm OCT 05 [X] IV Meropenem 1 gm OCT 05 [X] IV Clindamycin 900mg OCT 05 [X] IV Vancomycin 1 gm OCT 05 [X] Ankle X ray Imaging Dr Montoya 05/17 [X] GS consult Consult Dr Mendieta 05/17 [facility] Signature: Selene Alfaro Phone #: [phone] Date/Time: 05/24/202045 This is a permanent part of the Medical Record [facility]
== END 2020-05-21 11:20 | disposition home or self-care (01) | DRG 872 ==
LOC: ERS 07:07 → T4-B 12:37
PROVIDERS: ADMIT Internal Medicine; ATTEND Internal Medicine
DX: A41.9 Sepsis, unspecified organism (principal); E87.2 Acidosis; L03.115 Cellulitis of right lower limb; E87.1 Hypo-osmolality and hyponatremia; Z68.43 Body mass index [BMI] 50.0-59.9, adult; E66.01 Morbid (severe) obesity due to excess calories; Z20.828 Contact with and (suspected) exposure to other viral communicable diseases; N18.2 Chronic kidney disease, stage 2 (mild); F41.9 Anxiety disorder, unspecified; F32.9 Major depressive disorder, single episode, unspecified; E78.5 Hyperlipidemia, unspecified; Z87.891 Personal history of nicotine dependence; Z28.21 Immunization not carried out because of patient refusal
CPT/HCPCS: 36415; 80048; 80053; 83036; 83605; 84703; 85025; 85652; 86140; 87040; 87635; 96365; 96366; 96368; 96375; J1650; J2185; J2270; J2405; J2543; J3370; J3490; Q0162; Q0163; U0003

== ENCOUNTER 2025-06-26 03:14 | Emergency (ER) | payer OTHER, SELFPAY ==
[2025-06-26] MEDS ORDERED: Dexamethasone 10 MG/ML VIAL ONE (03:43)
== END 2025-06-26 04:34 | disposition home or self-care (01) ==
LOC: ERS 03:14
DX: J45.901 Unspecified asthma with (acute) exacerbation (principal); Z87.891 Personal history of nicotine dependence
CPT/HCPCS: J1100